=== PATIENT | male | born 1975 | race Caucasian/White ===

== ENCOUNTER 2019-05-20 08:05 | Day surgery (SDC) | payer OTHER ==
[~2019-05-20 08:05] MED LIST: Flomax0.4 MG PO; Norco 5-325 Ta1 EACH PO; PROM25 PO
--- NOTE | 2019-05-20 11:29 | NUR ---
05/20/19 Luz Maria Amanda PATIENT NAUSEATED AND LIGHT HEADED WHEN SAT UP. MED WITH ZOFRAN 4MG IV FOR NAUSEA, GIVEN ICE CHIPS. MOTHER AT BEDSIDE,
== END 2019-05-20 12:45 | disposition home or self-care (01) ==
LOC: ORSCSDS 08:05
PROVIDERS: Orthopaedic Surgery
PROC: 0PBB4ZZ Excision of Left Clavicle, Percutaneous Endoscopic Approach (ICD-10-PCS; principal; 2019-05-20 09:30)
DX: M19.012 Primary osteoarthritis, left shoulder (principal); S43.102A Unspecified dislocation of left acromioclavicular joint, initial encounter
CPT/HCPCS: J0171; J0690; J1100; J2250; J2370; J2405; J2704; J2710; J3010; J7120

== ENCOUNTER → 2023-01-28 | Outpatient (CLI) | payer OTHER ==
[2023-01-31 01:07] LABS: CHLAMYDIA TRACHOMATIS, NAA Negative (Negative)
== END | disposition home or self-care (01) ==
LOC: LAB SHORT 18:30 → LAB 18:30
PROVIDERS: Physician Assistant
DX: R30.0 Dysuria (principal)
CPT/HCPCS: 87491; 87591